=== PATIENT | male | born 1995 | race Caucasian/White ===

== ENCOUNTER 2017-12-08 16:00 | Inpatient (IN) | payer OTHER ==
[2017-12-08] MEDS: NICOTINE 21MG/24HR 1 EA TRANSDERMAL TD (09:00)
[2017-12-08 17:13] LABS: HEMATOCRIT 43.5 % (42.0-52.0); HEMOGLOBIN 14.7 g/dl (13.5-17.5); MEAN CORPUSCULAR HEMOGLOBIN 30.3 pg (27.0-33.0); MEAN CORPUSCULAR HGB CONC 33.8 g/dl (32.0-36.5); MEAN CORPUSCULAR VOLUME 89.7 fl (80.0-96.0); PLATELET COUNT, AUTOMATED 252 10^3/uL (150-450); RED BLOOD COUNT 4.85 10^6/uL (4.30-6.10); WHITE BLOOD COUNT 6.6 10^3/uL (4.0-10.0)
[2017-12-08 17:51] LABS: AMPHETAMINES LEVEL URINE NEGATIVE (NEGATIVE); BARBITURATES URINE NEGATIVE (NEGATIVE); BENZODIAZEPINES URINE NEGATIVE (NEGATIVE); CANNABINOIDS URINE NEGATIVE (NEGATIVE); COCAINE METABOLITE URINE NEGATIVE (NEGATIVE); METHADONE URINE NEGATIVE (NEGATIVE); OPIATES URINE NEGATIVE (NEGATIVE); PHENCYCLIDINE URINE NEGATIVE (NEGATIVE)
[2017-12-08 18:01] LABS: ACETAMINOPHEN LEVEL < 2.0 UG/ML (10.0-30.0); ALBUMIN 4.3 GM/DL (3.2-5.2); ALKALINE PHOSPHATASE 83 U/L (45-117); ALT/SGPT 34 U/L (12-78); ANION GAP 8 MEQ/L (8-16); AST/SGOT 28 U/L (7-37); BILIRUBIN,DIRECT 0.1 MG/DL (0.0-0.2); BILIRUBIN,TOTAL 0.4 MG/DL (0.2-1.0); BLOOD UREA NITROGEN 16 MG/DL (7-18); CALCIUM LEVEL 8.9 MG/DL (8.5-10.1); CARBON DIOXIDE LEVEL 28 MEQ/L (21-32); CHLORIDE LEVEL 106 MEQ/L (98-107); CREATININE FOR GFR 1.03 MG/DL (0.70-1.30); ETHYL ALCOHOL (ETHANOL) < 0.003 % (0.000-0.010); GLOMERULAR FILTRATION RATE > 60.0 (>60); GLUCOSE, FASTING 90 MG/DL (70-100); POTASSIUM SERUM 3.8 MEQ/L (3.5-5.1); SALICYLATE LEVEL < 1.7 MG/DL (5.0-30.0); SODIUM LEVEL 142 MEQ/L (136-145); THYROID STIMULATING HORMONE 0.855 uIU/ML (0.358-3.740); TOTAL PROTEIN 7.6 GM/DL (6.4-8.2)
[2017-12-08] MEDS ORDERED: MAALOX 30 ML SUSP *UDC PO (18:30)
[2017-12-08] MEDS ORDERED: MOM 30ML SUSPENSION UDC PO (18:30)
[2017-12-08] MEDS ORDERED: ACETAMINOPHEN TAB 650MG DOSE (2X325MG) PO (18:30)
[2017-12-09] MEDS: NICOTINE 21MG/24HR 1 EA TRANSDERMAL TD (09:42)
[2017-12-09] MEDS: traZODone 50 MG TAB PO (22:16)
[2017-12-10] MEDS: NICOTINE 21MG/24HR 1 EA TRANSDERMAL TD (09:48)
[2017-12-10] MEDS: PILL CRUSHER/CUTTER 1 EACH XX (10:25)
[2017-12-10] MEDS: RAMELTEON 8 MG TAB (ROZEREM) PO (21:31)
[2017-12-11] MEDS: PILL CRUSHER/CUTTER 1 EACH XX (08:47)
[2017-12-11] MEDS: NICOTINE 21MG/24HR 1 EA TRANSDERMAL TD (08:49)
[2017-12-11] MEDS: zolPIDEM TARTRATE 5 MG TAB PO (20:22)
[2017-12-11] MEDS: hydrOXYzine 50 MG TAB PO (20:22)
[2017-12-12] MEDS: PILL CRUSHER/CUTTER 1 EACH XX (09:06)
[2017-12-12] MEDS: NICOTINE 21MG/24HR 1 EA TRANSDERMAL TD (09:07)
[2017-12-12] MEDS: zolPIDEM TARTRATE 5 MG TAB PO (21:14)
[2017-12-13] MEDS: NICOTINE 21MG/24HR 1 EA TRANSDERMAL TD (09:31)
== END 2017-12-13 12:30 | disposition home or self-care (01) | DRG 885 ==
LOC: M ED 16:00 → M ED INP 18:21 → M PSY 21:42
DX: F31.81 Bipolar II disorder (principal); F17.210 Nicotine dependence, cigarettes, uncomplicated; Z81.8 Family history of other mental and behavioral disorders; F41.9 Anxiety disorder, unspecified